=== PATIENT | female | born 1990 | race Caucasian/White ===

== ENCOUNTER → 2016-11-07 | Outpatient (REF) | payer OTHER | LOC: M LAB REF 13:13 | PROVIDERS: ATTEND Advanced Practice Midwife | DX: R30.0 Dysuria (principal) ==

== ENCOUNTER → 2016-11-27 | Outpatient (CLI) | payer OTHER, BC ==
--- NOTE | 2016-11-27 15:02 | REP ---
Clinical: Pelvic pain. Confirm IUD positioning. Technique: Transabdominal pelvic ultrasound followed by transvaginal examination for better evaluation of the endometrium and adnexa with color Doppler evaluation of the ovaries. Findings: Bladder is unremarkable and measures 9.0 x 7.2 x 7.8 cm. Retroverted uterus measures 6.6 x 3.8 x 4.2 cm. The endometrial complex measures 11.8 mm thickness. No discrete uterine or endometrial abnormalities are appreciated. IUD is identified in satisfactory position with tip extending towards the fundus. Bilateral ovaries are normal in appearance and vascularity without evidence for torsion. Right ovary measures 4.0 x 2.2 x 2.7 cm ; R I = 0.55. Left ovary measures 3.3 x 1.7 x 1.9 cm with 1.4 cm involuting follicle; R I = 0.55. 1 cm left paraovarian cyst. Mild free fluid likely physiologic. Impression: 1. Retroverted uterus with IUD in satisfactory position. 2. 1.4 cm involuting left ovarian cyst and 1 cm left paraovarian cyst. Consider follow-up examination in 4-6 weeks. Signed by Hu Odom MD 11/27/2016 02:53 P
== END ==
LOC: M RAD 13:45
PROVIDERS: ATTEND Advanced Practice Midwife
DX: Z30.431 Encounter for routine checking of intrauterine contraceptive device (principal); N83.202 Unspecified ovarian cyst, left side; Q51.818 Other congenital malformations of uterus

== ENCOUNTER 2017-09-15 20:51 | Emergency (ER) | payer OTHER, BC ==
[2017-09-15] MEDS: LORATADINE 10 MG TAB PO (21:45)
== END 2017-09-15 22:06 | disposition home or self-care (01) ==
LOC: M ED 20:51
DX: S40.861A Insect bite (nonvenomous) of right upper arm, initial encounter (principal); S40.862A Insect bite (nonvenomous) of left upper arm, initial encounter; S30.860A Insect bite (nonvenomous) of lower back and pelvis, initial encounter; S80.861A Insect bite (nonvenomous), right lower leg, initial encounter; S80.862A Insect bite (nonvenomous), left lower leg, initial encounter; T78.40XA Allergy, unspecified, initial encounter; W57.XXXA Bitten or stung by nonvenomous insect and other nonvenomous arthropods, initial encounter; Y92.099 Unspecified place in other non-institutional residence as the place of occurrence of the external cause; Y93.89 Activity, other specified; R21 Rash and other nonspecific skin eruption; L50.9 Urticaria, unspecified; L29.9 Pruritus, unspecified; Z79.899 Other long term (current) drug therapy; Z88.8 Allergy status to other drugs, medicaments and biological substances
CPT/HCPCS: 99282

== ENCOUNTER 2017-09-18 10:11 | Emergency (ER) | payer OTHER ==
[2017-09-20 14:14] LABS: HERPES ZOSTER, VARICELLA IgM <0.91 index (0.00-0.90)
[2017-09-20 14:14] LABS: HERPES ZOSTER, VARICELLA IgG <135 index (Immune >165)
== END 2017-09-18 11:31 | disposition home or self-care (01) ==
LOC: M ED 10:11
DX: B01.9 Varicella without complication (principal); Z87.891 Personal history of nicotine dependence; Z88.8 Allergy status to other drugs, medicaments and biological substances
CPT/HCPCS: 86787

== ENCOUNTER → 2017-11-26 | Outpatient (REF) | payer OTHER ==
[2017-11-26 15:25] LABS: CHLAMYDIA DNA AMPLIFICATION NEGATIVE (NEGATIVE); GC DNA AMPLIFICATION NEGATIVE (NEGATIVE)
== END ==
LOC: M LAB REF 13:18
DX: Z34.81 Encounter for supervision of other normal pregnancy, first trimester (principal); Z3A.08 8 weeks gestation of pregnancy
CPT/HCPCS: 87086

== ENCOUNTER → 2017-12-05 | Outpatient (CLI) | payer OTHER ==
[2017-12-05 10:46] LABS: BASO # 0.1 10^3/uL (0.0-0.2); BASO % 0.5 % (0.0-1.0); EOS # 0.1 10^3/uL (0.0-0.50); EOS % 0.9 % (0.0-3.0); HEMATOCRIT 37.4 % (36.0-47.0); HEMOGLOBIN 12.6 g/dl (12.0-15.5); IMMATURE GRANULOCYTE % 0.4 % (0-3.0); LYMPH # 2.4 10^3/uL (1.5-6.5); LYMPH % 24.7 % (24.0-44.0); MEAN CORPUSCULAR HEMOGLOBIN 29.8 pg (27.0-33.0); MEAN CORPUSCULAR HGB CONC 33.7 g/dl (32.0-36.5); MEAN CORPUSCULAR VOLUME 88.4 fl (80.0-96.0); MONO # 0.5 10^3/uL (0.0-0.8); MONO % 4.9 % (0.0-5.0); NEUTROPHILS # 6.7 10^3/uL (1.8-7.7); NEUTROPHILS % 68.6 % (36.0-66.0); PLATELET COUNT, AUTOMATED 252 10^3/uL (150-450); RED BLOOD COUNT 4.23 10^6/uL (4.00-5.40); RED CELL DISTRIBUTION WIDTH 12.4 % (11.5-14.5); WHITE BLOOD COUNT 9.8 10^3/uL (4.0-10.0)
[2017-12-05 11:15] LABS: ALT/SGPT 15 U/L (12-78); AST/SGOT 11 U/L (7-37); BILIRUBIN,TOTAL 0.3 MG/DL (0.2-1.0); CREATININE FOR GFR 0.57 MG/DL (0.55-1.30); GLOMERULAR FILTRATION RATE > 60.0 (>60); GLUCOSE CHALLENGE TEST 1 HOUR 114 MG/DL (LESS THAN 140); LDH LACTATE DEHYDROGENASE 140 U/L (84-246); URIC ACID 4.5 MG/DL (2.6-6.0)
[2017-12-05 11:30] LABS: ESTIMATED AVERAGE GLUCOSE 103 MG/DL (60-110); HEMOGLOBIN A1c 5.2 %
[2017-12-05 11:40] LABS: RUBELLA IgG QUALITATIVE IMMUNE (IMMUNE)
[2017-12-05 11:41] LABS: HEPATITIS B SURFACE ANTIGEN NEGATIVE (NEGATIVE)
[2017-12-05 12:09] LABS: HEPATITIS C VIRUS ABY INDEX < 0.0 INDEX (<0.8)
[2017-12-05 12:09] LABS: HIV 1&2 SCREEN CENTAUR NEGATIVE (NEGATIVE)
[2017-12-05 13:05] LABS: CHLAMYDIA DNA AMPLIFICATION NEGATIVE (NEGATIVE); GC DNA AMPLIFICATION NEGATIVE (NEGATIVE)
== END ==
LOC: M LAB 08:47
DX: Z34.81 Encounter for supervision of other normal pregnancy, first trimester (principal); Z3A.08 8 weeks gestation of pregnancy

== ENCOUNTER → 2018-01-22 | Outpatient (CLI) | payer OTHER | LOC: M LAB 08:50 | DX: Z34.80 Encounter for supervision of other normal pregnancy, unspecified trimester (principal); Z3A.00 Weeks of gestation of pregnancy not specified | CPT/HCPCS: 36415 ==

== ENCOUNTER → 2018-02-02 | Outpatient (CLI) | payer OTHER | LOC: M RAD 11:07 | DX: Z34.82 Encounter for supervision of other normal pregnancy, second trimester (principal); Z36.89 Encounter for other specified antenatal screening; Z3A.18 18 weeks gestation of pregnancy | CPT/HCPCS: 76811 ==

== ENCOUNTER → 2018-04-15 | Outpatient (CLI) | payer OTHER ==
[2018-04-15 09:52] LABS: HEMATOCRIT 35.4 % (36.0-47.0); HEMOGLOBIN 11.8 g/dl (12.0-15.5); MEAN CORPUSCULAR HEMOGLOBIN 30.3 pg (27.0-33.0); MEAN CORPUSCULAR HGB CONC 33.3 g/dl (32.0-36.5); MEAN CORPUSCULAR VOLUME 90.8 fl (80.0-96.0); PLATELET COUNT, AUTOMATED 210 10^3/uL (150-450); RED CELL DISTRIBUTION WIDTH 13.2 % (11.5-14.5)
[2018-04-15 10:09] LABS: GLUCOSE CHALLENGE TEST 1 HOUR 125 MG/DL (LESS THAN 140)
[2018-04-16 08:55] LABS: RH ONLY RHOGAM 1 1
== END ==
LOC: M LAB 08:09
DX: Z34.83 Encounter for supervision of other normal pregnancy, third trimester (principal); Z36.89 Encounter for other specified antenatal screening
CPT/HCPCS: 82950

== ENCOUNTER → 2018-06-12 | Outpatient (REF) | payer OTHER | LOC: M LAB REF 17:28 | DX: O99.213 Obesity complicating pregnancy, third trimester (principal) | CPT/HCPCS: 87186 ==

== ENCOUNTER 2018-07-08 12:56 | Inpatient (IN) | payer OTHER ==
[~2018-07-08] VITALS: Ht 177.8 cm; Wt 164.4 kg
[2018-07-08] VITALS (12 sets, daily range): BP systolic 108–143; BP diastolic 56–95
[~2018-07-08 12:56] MED LIST: PRENTAB16 PO; TRIA1CR80 TOP
[2018-07-08] MEDS ORDERED: OMEP40CA2 PO (13:28)
[2018-07-08] MEDS ORDERED: CLARITAN (13:28)
--- NOTE | 2018-07-08 14:56 | HPE ---
DATE OF ADMISSION: 07/08/2018 CHIEF COMPLAINT: Is labor. HISTORY OF PRESENT ILLNESS: Erika is a 27-year-old G1, P0-0-0-0 at 40 weeks 4 days estimated gestation by last menstrual period of 09/27/2017, confirmed by first-trimester ultrasound of 11/26/2017 with an estimated date of delivery of 07/04/2018. She is presenting for induction of labor. She denies any contractions or leakage of fluid, bleeding, or discharge. She has not had intercourse within the last week. She is feeling the baby move all the time. LABORATORIES: Blood type is O negative. RhoGAM was given at 28 weeks 6 days. Blood pressures have been normal in the office. Total weight gained is 40 pounds. The patient is group B streptococcus (GBS) positive, rubella immune, HIV negative, gonorrhea and chlamydia negative, hepatitis B surface antibody negative, [facility] ([facility]) nonreactive, and diabetes screen negative. Her last Pap was in May 2017 and was within normal limits. AFP4 was negative. The first obstetrical ultrasound showed posterior placenta. Ultrasound on 06/17/2018 had an amniotic fluid index (ADRIAN) of 15.6 cm. PAST OBSTETRICAL HISTORY: None. PAST MEDICAL HISTORY: None. MEDICATIONS: - vitamins - omeprazole 20 mg daily [id number] - Claritin daily PAST SURGICAL HISTORY: [place] teeth. PAST FAMILY HISTORY: Includes cancer, diabetes, hypertension, chronic kidney disease, and her father had factor V Leiden. ALLERGIES: OCPs WITH ESTROGEN. SOCIAL HISTORY: The patient is . Is a former smoker who quit in February of 2017. Denies any drug or alcohol use. EXAMINATION: Vital signs: Temperature 97.9, heart rate 93, blood pressure 137/95. Abdomen: Gravid. Sterile vaginal examination: 1 cm, 50% effaced, -2 station. monitor: Category one tracing with a baseline of 155 beats per minute. Good variability, prolonged accelerations. Tocometer: No contractions. Extremities: 2+ pitting edema up to the midshin. ASSESSMENT: This is in a single intrauterine (IUP) at 40 and 4 weeks presenting for induction of labor. Admit to labor and delivery with routine laboratories and orders. PLAN: 1. Induction of labor. Start with misoprostol sublingual. 2. Group B streptococcus positive. Will treat with antibiotics. 3. The patient would like epidural for coping with labor when she is father along. 4. Anticipate spontaneous vaginal delivery. My faculty preceptor for this patient encounter was physically present during the encounter and was fully available. All aspects of the patient interview, examination, medical decision-making process, and medical care plan development were reviewed and approved by the faculty preceptor. The faculty preceptor is aware and concurs with the plan as stated in the body of this note and will attest to such by his/her cosignature. MARGE
[2018-07-08] MEDS: miSOPROStol 50 MCG 1/2 TAB (S0191) SL SCH ×2 (15:29→19:58)
[2018-07-08 15:40] LABS: HEMATOCRIT 39.1 % (36.0-47.0); HEMOGLOBIN 12.8 g/dl (12.0-15.5); MEAN CORPUSCULAR HEMOGLOBIN 29.8 pg (27.0-33.0); MEAN CORPUSCULAR HGB CONC 32.7 g/dl (32.0-36.5); MEAN CORPUSCULAR VOLUME 91.1 fl (80.0-96.0); PLATELET COUNT, AUTOMATED 235 10^3/uL (150-450); RED BLOOD COUNT 4.29 10^6/uL (4.00-5.40); WHITE BLOOD COUNT 13.9 10^3/uL (4.0-10.0)
[2018-07-08] MEDS ORDERED: SLF 3 ML SYR IV PRN (16:15)
[2018-07-08] MEDS ORDERED: PRENATAL VITAMINS CHEWABLE TABLET PO ONE (21:00)
[2018-07-08] MEDS: LORATADINE 10 MG TAB PO SCH (21:31)
[2018-07-08] MEDS: OMEPRAZOLE 20 MG CAP PO SCH (21:32)
[2018-07-08] MEDS ORDERED: SLF 3 ML SYR IV SCH (22:00)
[2018-07-09] VITALS (54 sets, daily range): BP systolic 105–152; BP diastolic 55–91
[2018-07-09] MEDS: miSOPROStol 50 MCG 1/2 TAB (S0191) SL SCH (00:03)
[2018-07-09] MEDS ORDERED: OXYTOCIN DRIP 30 UNITS in APPROPRIATE DILUENT 1 EA IV SCH (07:45)
--- NOTE | 2018-07-09 07:48 | IPNPDOC ---
Obstetrical Progress Note Date of Service Jul 09, 2018 Subjective Feeling baby move, no contractions yet. Comfortable and coping well. No bleeding, leakage of fluids, or discharge Objective Vital Signs Date Time Temp Pulse Resp B/P (MAP) Pulse Ox O2 Delivery O2 Flow Rate FiO2 07/09/18 04:11 98.0 07/09/18 03:11 71 18 113/73 (86) Assessment Heart Rate (FHR): 150 Variability: Moderate Accelerations: Positive Decelerations: None Heart Rate Tracing: Category I Tocometer Contractions: No Sterile Vaginal Examination Dilation: 2cm Effacement (%): 70% Station: -1 Cervical Consistency: Soft Cervical Position: Posterior Postion/Presentation: Cephalic presentation Assessment and Plan Age: 27 : 1 Term: 0 Pre-term: 0 Abortions: 0 Livin Weeks & Days 40 weeks 5 days Status: Reassuring Anticipate: Vaginal Delivery (starting pitocin, GBS positive, giving antibiotic this morning, stopping misoprostol after 3 doses) GME ATTESTATION GME ATTESTATION My faculty preceptor for this patient encounter was physically present during the encounter and was fully available. All aspects of the patient interview, examination, medical decision making process, and medical care plan development were reviewed and approved by the faculty preceptor. The faculty preceptor is aware and concurs with the plan as stated in the body of this note and will attest to such by his/her cosignature. MARGARITO SANDOVAL DO Jul 09, 2018 07:48
[2018-07-09] MEDS: LR 1,000 ML IV SCH (08:55)
[2018-07-09] MEDS ORDERED: PENICILLIN G POTASSIUM IV 5 MU in D5W MINI-BAG PLUS 100 ML IV STA (09:00)
[2018-07-09] MEDS: PENICILLIN G POTASSIUM IV 2.5 MU in APPROPRIATE DILUENT 1 EA IV SCH ×3 (13:36→21:47)
[2018-07-09] MEDS ORDERED: PROMETHAZINE INJ 25 MG/ML VIAL (J2550) IV ONE (17:30)
[2018-07-09] MEDS ORDERED: BUTORPHANOL 2 MG/ML INJ (J0595) IV ONE (17:30)
[2018-07-09] MEDS ORDERED: FENTANYL 2MCG/ML ROPIVACAINE 0.2% IN 0.9% NACL 100ML IVBAG As Ordered ONE (19:14)
[2018-07-09] MEDS ORDERED: EPIDURAL COMMENT XX SCH (20:45)
[2018-07-09] MEDS ORDERED: FENTANYL/ROPIVACAINE/NACL BAG 100 ML EPIDURAL SCH (20:45)
[2018-07-09] MEDS ORDERED: EPIDURAL/PCA KEYS XX PRN (20:45)
[2018-07-09] MEDS ORDERED: ePHEDrine SULFATE 25 MG/5 ML(5MG/ML) SYRINGE IV PRN (20:45)
[2018-07-09] MEDS ORDERED: ONDANSETRON 4MG/2ML VIAL (J2405) IV PRN (20:45)
[2018-07-09] MEDS ORDERED: REFRIGERATOR IV KEYS XX PRN (20:45)
[2018-07-09] MEDS ORDERED: NALOXONE INJ 0.4 MG/1 ML VIAL (J2310) IV PRN (20:45)
[2018-07-09] MEDS ORDERED: LACTATED RINGER'S 1000 ML IV PRN (20:45)
[2018-07-09] MEDS ORDERED: diphenhydrAMINE INJ 50MG/ML VIAL (J1200) IV PRN (20:45)
[2018-07-09] MEDS: LORATADINE 10 MG TAB PO SCH (21:00)
[2018-07-09] MEDS: OMEPRAZOLE 20 MG CAP PO SCH (21:00)
[2018-07-10] VITALS (12 sets, daily range): BP systolic 112–151; BP diastolic 54–86
[2018-07-10] MEDS: LR 1,000 ML IV SCH (01:41)
[2018-07-10] MEDS: PENICILLIN G POTASSIUM IV 2.5 MU in APPROPRIATE DILUENT 1 EA IV SCH (02:10)
[2018-07-10] MEDS ORDERED: OXYTOCIN DRIP 30 UNITS in APPROPRIATE DILUENT 1 EA IV SCH (05:29)
[2018-07-10] MEDS ORDERED: METHYLERGONOVINE MALEATE 0.2 MG TAB PO PRN (05:30)
[2018-07-10] MEDS ORDERED: DIBUCAINE 1% OINTMENT 30GM TOP PRN (05:30)
[2018-07-10] MEDS ORDERED: MEASLES,MUMPS,RUBELLA VACCINE INJ (MMR-II) (90707) SC SCH (05:30)
[2018-07-10] MEDS ORDERED: RHOGAM 300 MCG (1500 IU) INJ (J2790) IM SCH (05:30)
[2018-07-10] MEDS ORDERED: DOCUSATE SODIUM 100 MG CAP PO PRN (05:30)
[2018-07-10] MEDS ORDERED: ACETAMINOPHEN 500 MG TAB PO PRN (05:30)
[2018-07-10] MEDS ORDERED: AMPICILLIN SOD/SULBACTAM SOD 3 GM in D5W MINI-BAG PLUS 100 ML IV ONE (05:45)
[2018-07-10 06:05] LABS: CORD GAS ABE A -3.3; CORD GAS HCO3 A 25.4 MEQ/L; CORD GAS O2 SAT A < 15.0 %; CORD GAS PCO2 A 60.4 mmHg; CORD GAS PH A 7.242 UNITS; CORD GAS PO2 A < 10.0 mmHg; CORD GAS TCO2 A 27.3 MEQ/L
[2018-07-10 06:07] LABS: CORD GAS ABE V -4.5; CORD GAS HCO3 V 21.4 MEQ/L; CORD GAS O2 SAT V 57.8 %; CORD GAS PCO2 V 42.4 mmHg; CORD GAS PH V 7.321 UNITS; CORD GAS PO2 V 25.9 mmHg; CORD GAS SBC V 19.8 MEQ/L; CORD GAS TCO2 V 22.7 MEQ/L
--- NOTE | 2018-07-10 06:17 | DN ---
DATE: 07/10/2018 Erika is a 27-year-old, 1, para 1-0-0-1 now, admitted to labor and delivery for induction of labor due to post-term . Misoprostol and IV Pitocin was used and labor did ensue. She did utilize an epidural for her labor coping. She progressed to full dilation at 0340. She pushed to a normal spontaneous vaginal delivery of a live female in occiput anterior (OA) position with restitution to left occiput transverse (LOT) position at 0445 with much coaching and encouragement. There was no nuchal cord. The shoulders delivered spontaneously and the corpus immediately followed. The female's mouth and nares were bulb suctioned and she was placed on the maternal abdomen crying and active. The cord was clamped times two and cut by the father of the baby under my direction. Cord gases were obtained. Results are still pending. Cord blood was obtained. There was a manual removal of placenta at 0500. There were trailing membranes that had to be removed manually times three sweeps. Uterine hemostasis achieved with IV Pitocin rapid infusion and uterine fundal massage. Estimated blood loss 350 mL. Perineum and vagina inspected and noted to be intact. [place] female weighed 7 pounds 10 ounces, 3470 grams, 8 and 9. Mom has named her daughter Donnell. She is going to breastfeed. At the close of delivery, lap counts, needle counts and instrument counts were correct and verified. I will be providing one dose of Unasyn for prophylactic antibiotic therapy.
[2018-07-10] MEDS: PRENATAL VITAMINS CHEWABLE TABLET PO SCH (09:00)
[2018-07-10] MEDS: IBUPROFEN 800 MG TAB PO SCH ×2 (15:15→20:44)
[2018-07-10] MEDS: OMEPRAZOLE 20 MG CAP PO SCH (20:45)
[2018-07-10] MEDS: LORATADINE 10 MG TAB PO SCH (20:45)
[2018-07-11] MEDS: IBUPROFEN 800 MG TAB PO SCH ×4 (03:55→21:00)
--- NOTE | 2018-07-11 05:23 | IPNPDOC ---
Text Note Date of Service The patient was seen on 07/11/18. NOTE Day 1 Status post spontaneous vaginal delivery Subjective Pain well controlled. Lochia decreasing. Voiding spontaneously. Passing flatus. Tolerating a regular diet. Ambulating without any assistance. Denies any subjective fever/chills/nausea/headache/visual changes/shortness of breath/chest pain. Breast feeding. Objective Vitals: Normotensive, normal heart rate, afebrile, adequate urine output. Heart: regular, rate, and rhythm. no murmurs/gallops/rubs Lungs: clear to auscultation bilaterally, no wheezes/crackles/rales/ronchi Abd: obese, soft, nontender, nondistended, uterine fundus is at the umbilicus and firm. Ext: no significant edema, nontender, negative Dominick's bilaterally. Assessment/Plan: day 1. Recovering well. Hemodynamically stable, afebrile, pain control adequate. -Routine care -Potential discharge to home today -Routine infectious, fever, pain, and bleeding precautions reviewed VS,Fishbone, I+O VS, Fishbone, I+O Vital Signs Date Time Temp Pulse Resp B/P (MAP) Pulse Ox O2 Delivery O2 Flow Rate FiO2 07/10/18 18:01 97.6 92 16 132/68 (89) 07/10/18 08:45 98 Room Air I&O- Last 24 Hours up to 6 AM 07/11/18 06:00 Intake Total 625 ml Output Total 250 ml Balance 375 ml GME ATTESTATION GME ATTESTATION My faculty preceptor for this patient encounter was physically present during th e encounter and was fully available. All aspects of the patient interview, examination, medical decision making process, and medical care plan development were reviewed and approved by the faculty preceptor. The faculty preceptor is aware and concurs with the plan as stated in the body of this note and will attest to such by his/her cosignature. MARGARITO SANDOVAL DO Jul 11, 2018 05:23
[2018-07-11 06:00] VITALS: BP 132/86
[2018-07-11] MEDS: PRENATAL VITAMINS CHEWABLE TABLET PO SCH (09:07)
[2018-07-11 18:06] VITALS: BP 137/88
[2018-07-11] MEDS: OMEPRAZOLE 20 MG CAP PO SCH (21:48)
[2018-07-11] MEDS: LORATADINE 10 MG TAB PO SCH (21:48)
[2018-07-12] MEDS: IBUPROFEN 800 MG TAB PO SCH ×2 (03:00→08:02)
[2018-07-12 06:00] VITALS: BP 139/86
[2018-07-12] MEDS: PRENATAL VITAMINS CHEWABLE TABLET PO SCH (08:02)
[2018-07-12] MEDS ORDERED: MAPA500T17 PO (09:10)
[2018-07-12] MEDS ORDERED: IBUP-1114 PO (09:11)
== END 2018-07-12 11:45 | disposition home or self-care (01) | DRG 807 ==
LOC: M LDI 12:56 → M OBS 07-10 08:38
PROVIDERS: ADMIT Specialist; ATTEND Specialist
PROC: 10E0XZZ Delivery of Products of Conception, External Approach (ICD-10-PCS; principal; 2018-07-08)
PROC: 3E033VJ Introduction of Other Hormone into Peripheral Vein, Percutaneous Approach (ICD-10-PCS; 2018-07-08)
PROC: 3E0DXGC Introduction of Other Therapeutic Substance into Mouth and Pharynx, External Approach (ICD-10-PCS; 2018-07-08)
DX: O48.0 Post-term pregnancy (principal); Z37.0 Single live birth; Z3A.40 40 weeks gestation of pregnancy; Z87.891 Personal history of nicotine dependence; O99.820 Streptococcus B carrier state complicating pregnancy

== ENCOUNTER → 2019-03-05 | Outpatient (REF) | payer OTHER ==
[~2019-03-05] MED LIST changes: +CLARITAN; +IBUP-1114 PO; +MAPA500T2 PO; +OMEP40CA2 PO
== END ==
LOC: M LAB REF 17:15
PROVIDERS: ATTEND Advanced Practice Midwife
DX: Z12.4 Encounter for screening for malignant neoplasm of cervix (principal)

== ENCOUNTER → 2019-05-09 | Outpatient (REF) | payer OTHER ==
[~2019-05-09] MED LIST changes: -OMEP40CA2 PO; +OMEP40CA97 PO
== END ==
LOC: M LAB REF 14:45
PROVIDERS: ATTEND Physician Assistant Medical
DX: J02.9 Acute pharyngitis, unspecified (principal)

== ENCOUNTER → 2019-07-13 | Outpatient (CLI) | payer OTHER ==
[2019-07-13 07:50] LABS: BASO # 0.1 10^3/uL (0.0-0.2); BASO % 0.7 % (0.0-1.0); EOS # 0.1 10^3/uL (0.0-0.5); EOS % 1.4 % (0.0-3.0); HEMATOCRIT 41.2 % (36.0-47.0); HEMOGLOBIN 13.2 g/dl (12.0-15.5); LYMPH # 3.1 10^3/uL (1.5-5.0); LYMPH % 38.8 % (24.0-44.0); MEAN CORPUSCULAR HEMOGLOBIN 29.9 pg (27.0-33.0); MEAN CORPUSCULAR VOLUME 93.4 fl (80.0-96.0); MONO # 0.6 10^3/uL (0.0-0.8); MONO % 7.2 % (0.0-5.0); NEUTROPHILS # 4.2 10^3/uL (1.5-8.5); NEUTROPHILS % 51.5 % (36.0-66.0); PLATELET COUNT, AUTOMATED 230 10^3/uL (150-450); RED BLOOD COUNT 4.41 10^6/uL (4.00-5.40); WHITE BLOOD COUNT 8.1 10^3/uL (4.0-10.0)
[2019-07-13 08:18] LABS: ALBUMIN 3.4 GM/DL (3.2-5.2); ALT/SGPT 27 U/L (12-78); BILIRUBIN,TOTAL 0.1 MG/DL (0.2-1.0); BLOOD UREA NITROGEN 12 MG/DL (7-18); CALCIUM LEVEL 8.7 MG/DL (8.5-10.1); CARBON DIOXIDE LEVEL 25 MEQ/L (21-32); CHLORIDE LEVEL 109 MEQ/L (98-107); CHOLESTEROL LEVEL 178 MG/DL (<200); CHOLESTEROL RISK RATIO 4.045 (<5); CREATININE FOR GFR 0.83 MG/DL (0.55-1.30); GLOMERULAR FILTRATION RATE > 60.0 (>60); GLUCOSE, FASTING 89 MG/DL (70-100); HDL CHOLESTEROL 44 MG/DL (>40); HEMOGLOBIN A1c 5.4 %; LDL CHOLESTEROL 123 MG/DL (<100); NON-HDL-C 134 MG/DL; POTASSIUM SERUM 4.4 MEQ/L (3.5-5.1); SODIUM LEVEL 140 MEQ/L (136-145); TOTAL PROTEIN 6.4 GM/DL (6.4-8.2); TRIGLYCERIDES LEVEL 53 MG/DL (<150)
[2019-07-13 10:23] LABS: TOTAL 25(OH) VITAMIN D 24.4 NG/ML (30.0-100.0)
[2019-07-13 10:24] LABS: VITAMIN B12 LEVEL 243 PG/ML (247-911)
== END ==
LOC: M LAB 07:14
PROVIDERS: ATTEND Physician Assistant
DX: E66.01 Morbid (severe) obesity due to excess calories (principal); R40.0 Somnolence

== ENCOUNTER → 2019-09-14 | Outpatient (CLI) | payer OTHER ==
[2019-09-14 12:09] LABS: ALBUMIN 3.8 GM/DL (3.2-5.2); ALT/SGPT 24 U/L (12-78); BILIRUBIN,TOTAL 0.3 MG/DL (0.2-1.0); BLOOD UREA NITROGEN 13 MG/DL (7-18); CALCIUM LEVEL 9.1 MG/DL (8.5-10.1); CARBON DIOXIDE LEVEL 28 MEQ/L (21-32); CHLORIDE LEVEL 105 MEQ/L (98-107); CREATININE FOR GFR 0.75 MG/DL (0.55-1.30); GLOMERULAR FILTRATION RATE > 60.0 (>60); GLUCOSE, FASTING 82 MG/DL (70-100); POTASSIUM SERUM 4.1 MEQ/L (3.5-5.1); SODIUM LEVEL 138 MEQ/L (136-145); TOTAL PROTEIN 6.9 GM/DL (6.4-8.2)
[2019-09-14 12:15] LABS: TOTAL 25(OH) VITAMIN D 22.3 NG/ML (30.0-100.0); VITAMIN B12 LEVEL 1062 PG/ML
[2019-09-14 12:16] LABS: FOLATE > 24.0 NG/ML
== END ==
LOC: M LAB 11:06
PROVIDERS: ATTEND Physician Assistant
DX: E55.9 Vitamin D deficiency, unspecified (principal)

== ENCOUNTER → 2020-01-13 | Outpatient (CLI) | payer OTHER ==
--- NOTE | 2020-01-26 14:52 | SLEEPHOME ---
DATE OF STUDY: 01/13/2020 ORDERED BY: MAITE [facility] home sleep testing was performed due to concern for the obstructive sleep apnea syndrome. For testing, a nocturnal T3 respiratory monitoring device was used. Continuous record was made of pulse, oxygen saturation, airflow, chest and abdominal strain, and body position. 9 hours and 59 minutes of data were reviewed. There were 6 hours and 58 minutes marked as time in bed. During the interval marked time in bed, there were 168 respiratory events identified of 10 seconds in duration or greater for a respiratory event index of 24.1. The events were obstructive. Baseline pulse rate 71. Pulse rate ranged 58-96. Baseline saturation 95%. Saturations fell as low as 81%, and testing was performed in both the supine and nonsupine positions. IMPRESSION: Abnormal home sleep testing with repetitive respiratory events and oxygen desaturations to 81% with a respiratory event index of 24.1 is consistent with the obstructive sleep apnea syndrome. RECOMMENDATION: The patient should be encouraged to undergo formal sleep evaluation.
== END ==
LOC: M SLEEP HO 14:50
PROVIDERS: ATTEND Nurse Practitioner Adult Health
DX: G47.30 Sleep apnea, unspecified (principal)

== ENCOUNTER → 2020-03-23 | Outpatient (REF) | payer OTHER ==
[2020-03-23 19:21] LABS: HEMOGLOBIN 12.6 g/dl (12.0-15.5); MEAN CORPUSCULAR HEMOGLOBIN 29.6 pg (27.0-33.0); MEAN CORPUSCULAR HGB CONC 31.5 g/dl (32.0-36.5); MEAN CORPUSCULAR VOLUME 93.9 fl (80.0-96.0); PLATELET COUNT, AUTOMATED 265 10^3/uL (150-450); RED BLOOD COUNT 4.26 10^6/uL (4.00-5.40); WHITE BLOOD COUNT 7.6 10^3/uL (4.0-10.0)
[2020-03-23 19:35] LABS: ALBUMIN 3.6 GM/DL (3.2-5.2); ALT/SGPT 22 U/L (12-78); BILIRUBIN,TOTAL 0.3 MG/DL (0.2-1.0); BLOOD UREA NITROGEN 12 MG/DL (7-18); CALCIUM LEVEL 8.9 MG/DL (8.5-10.1); CARBON DIOXIDE LEVEL 27 MEQ/L (21-32); CHLORIDE LEVEL 109 MEQ/L (98-107); CREATININE FOR GFR 0.79 MG/DL (0.55-1.30); GLOMERULAR FILTRATION RATE > 60.0 (>60); GLUCOSE, FASTING 128 MG/DL (70-100); POTASSIUM SERUM 3.9 MEQ/L (3.5-5.1); SODIUM LEVEL 140 MEQ/L (136-145); TOTAL PROTEIN 6.8 GM/DL (6.4-8.2)
== END ==
LOC: M SFHCCLAY 17:35
PROVIDERS: ATTEND Family Medicine
DX: Z01.818 Encounter for other preprocedural examination (principal); E66.01 Morbid (severe) obesity due to excess calories; G47.33 Obstructive sleep apnea (adult) (pediatric)

== ENCOUNTER → 2020-06-21 | Outpatient (CLI) | payer OTHER ==
[2020-06-21 15:30] LABS: BASO % 0.6 % (0.0-1.0); EOS # 0.1 10^3/uL (0.0-0.5); EOS % 1.4 % (0.0-3.0); HEMATOCRIT 40.3 % (36.0-47.0); HEMATOCRIT 40.6 % (36.0-47.0); HEMOGLOBIN 12.8 g/dl (12.0-15.5); LYMPH # 2.3 10^3/uL (1.5-5.0); LYMPH % 46.1 % (24.0-44.0); MEAN CORPUSCULAR HEMOGLOBIN 28.6 pg (27.0-33.0); MEAN CORPUSCULAR HGB CONC 31.8 g/dl (32.0-36.5); MONO # 0.4 10^3/uL (0.0-0.8); MONO % 7.3 % (0.0-5.0); NEUTROPHILS # 2.2 10^3/uL (1.5-8.5); NEUTROPHILS % 44.6 % (36.0-66.0); PLATELET COUNT, AUTOMATED 184 10^3/uL (150-450); RED BLOOD COUNT 4.48 10^6/uL (4.00-5.40); WHITE BLOOD COUNT 4.9 10^3/uL (4.0-10.0)
[2020-06-21 16:02] LABS: FERRITIN 71 NG/ML (8-252); IRON (FE) 54 UG/DL (50-170); PERCENT SATURATION 22.2 % (13.2-45.0); PHOSPHORUS LEVEL 3.1 MG/DL (2.5-4.9); TOTAL IRON BINDING CAPACITY 243 UG/DL (250-450)
[2020-06-21 16:06] LABS: TOTAL 25(OH) VITAMIN D 45.6 NG/ML (30.0-100.0); VITAMIN B12 LEVEL > 2000 PG/ML (247-911)
== END ==
LOC: M LAB 14:38
PROVIDERS: ATTEND Surgery
DX: K91.2 Postsurgical malabsorption, not elsewhere classified (principal); E55.9 Vitamin D deficiency, unspecified; Z98.84 Bariatric surgery status; Z86.39 Personal history of other endocrine, nutritional and metabolic disease

== ENCOUNTER 2020-12-26 01:02 | Emergency (ER) | payer OTHER ==
[~2020-12-26] VITALS: Ht 180.3 cm; Wt 102.1 kg
[2020-12-26] MEDS ORDERED: MORPHINE 4 MG/ML 1ML VIAL/SYRINGE (J2270) IV PRN (01:50)
[2020-12-26] MEDS ORDERED: ONDANSETRON 4MG/2ML VIAL IV ONE (01:50)
[2020-12-26] MEDS ORDERED: NS 1,000 ML IV ONE ×2 (02:10→04:45)
[2020-12-26 02:19] LABS: BASO # 0.1 10^3/uL (0.0-0.2); BASO % 0.4 % (0.0-1.0); EOS % 0.4 % (0.0-3.0); HEMOGLOBIN 13.3 g/dl (12.0-15.5); LYMPH # 1.8 10^3/uL (1.5-5.0); LYMPH % 15.9 % (24.0-44.0); MEAN CORPUSCULAR HEMOGLOBIN 30.9 pg (27.0-33.0); MEAN CORPUSCULAR HGB CONC 32.4 g/dl (32.0-36.5); MEAN CORPUSCULAR VOLUME 95.3 fl (80.0-96.0); MONO # 0.5 10^3/uL (0.0-0.8); MONO % 4.1 % (2.0-8.0); NEUTROPHILS % 78.9 % (36.0-66.0); PLATELET COUNT, AUTOMATED 264 10^3/uL (150-450); WHITE BLOOD COUNT 11.3 10^3/uL (4.0-10.0)
[2020-12-26 02:50] LABS: ALBUMIN 3.7 GM/DL (3.2-5.2); ALT/SGPT 19 U/L (12-78); BILIRUBIN,DIRECT 0.2 MG/DL (0.0-0.2); BILIRUBIN,TOTAL 0.4 MG/DL (0.2-1.0); LIPASE 67 U/L (73-393); TOTAL PROTEIN 6.4 GM/DL (6.4-8.2)
[2020-12-26] MEDS ORDERED: GASTROGRAFIN SOLUTION 30ML PO ONE (03:00)
[2020-12-26] MEDS ORDERED: ISOVUE-370 76% 100ML VIAL As Ordered ONE (03:23)
[2020-12-26 03:40] LABS: RSV AMPLIFICATION NEGATIVE (NEGATIVE)
--- NOTE | 2020-12-26 04:11 | REPVR ---
PROCEDURE INFORMATION: Exam: XR Complete Acute Abdomen Series Including Chest Exam date and time: 12/26/2020 2:36 AM Age: 30 years old Clinical indication: Abdominal pain; Acute; Additional info: Abd pain TECHNIQUE: Imaging protocol: XR complete acute abdomen series, including 2 or more views of the abdomen and a single view chest. COMPARISON: No relevant prior studies available. FINDINGS: Lungs: Normal. No consolidation. Pleural spaces: Normal. No pleural effusions. No pneumothorax. Heart/Mediastinum: Normal. No cardiomegaly. Gastrointestinal tract: Nonspecific gas-filled loops of bowel in the left hemiabdomen. Gas is seen to the rectum. Intraperitoneal space: Normal. No free air. Organs: IUD in the pelvis. Bones/joints: Normal. No acute fracture. Soft tissues: Normal. IMPRESSION: 1. No acute infiltrate. 2. Nonspecific gas-filled loops of bowel in the left hemiabdomen. Gas is seen to the rectum. Electronically signed by: Sandra Johnston On 12/26/2020 04:11:04 AM
--- NOTE | 2020-12-26 04:19 | REPVR ---
PROCEDURE INFORMATION: Exam: CT Abdomen And Pelvis With Contrast Exam date and time: 12/26/2020 2:39 AM Age: 30 years old Clinical indication: Abdominal pain; Epigastric; Prior surgery; Surgery date: 6+ months; Surgery type: G bypass; Additional info: R/O perforated svetlana-en y anastamosis TECHNIQUE: Imaging protocol: Computed tomography of the abdomen and pelvis with contrast. Radiation optimization: All CT scans at this facility use at least one of these dose optimization techniques: automated exposure control; mA and/or kV adjustment per patient size (includes targeted exams where dose is matched to clinical indication); or iterative reconstruction. Contrast material: ISO; Contrast volume: 100 ml; Contrast route: INTRAVENOUS (IV); COMPARISON: CR Abdomen,Flat Upright,PA CHEST 12/26/2020 1:38 AM FINDINGS: Limitations: Examination is limited by motion artifact. Liver: Normal. No mass. Gallbladder and bile ducts: Normal. No calcified stones. No ductal dilation. Pancreas: Normal. No ductal dilation. Spleen: Normal. No splenomegaly. Adrenal glands: Normal. No mass. Kidneys and ureters: Normal. No hydronephrosis. Stomach and bowel: Small sliding-type gastric hiatal hernia. Status post gastric bypass surgery. There is irregularity of the anterior wall of the at the cardia of the stomach. Suspicious for site of viscus perforation. No abnormal bowel dilatation. No abnormal bowel wall thickening. Negative for colonic diverticulitis. Appendix: Appendix is normal. Intraperitoneal space: Small free fluid in the pelvis. Moderate pneumoperitoneum predominantly in the upper abdomen. Suspect tiny oral contrast in the subphrenic region just left of midline. (Series 201, image 14). Vasculature: Unremarkable. No abdominal aortic aneurysm. Lymph nodes: Unremarkable. No enlarged lymph nodes. Urinary bladder: Unremarkable as visualized. Reproductive: IUD in the uterus. Tampon in the vagina. Bones/joints: Mild degenerative spine. No acute fracture. Soft tissues: Small umbilical hernia containing infiltrated fat. Possible postop changes. Mild cellulitis cannot be excluded. IMPRESSION: 1. Moderate pneumoperitoneum predominantly in the upper abdomen. Consistent with bowel perforation. 2. Suspicious for perforation of the cardia of the stomach. 3. Status post gastric bypass surgery. 4. Suspect tiny oral contrast in the subphrenic region just left of midline. 5. Small free fluid in the pelvis. 6. Additional findings as described. Electronically signed by: Sandra Johnston On 12/26/2020 04:18:39 AM
[2020-12-26] MEDS ORDERED: PIPERACILLIN/TAZOBACTAM SOD 3.375 GM in D5W MINI-BAG PLUS 50 ML IV ONE (04:30)
[2020-12-26] MEDS ORDERED: fentaNYL 100 MCG/2 ML INJECTION (J3010) IV ONE (04:35)
[2020-12-26 05:19] LABS: BLOOD UREA NITROGEN 14 MG/DL (7-18); CARBON DIOXIDE LEVEL 26 MEQ/L (21-32); CHLORIDE LEVEL 111 MEQ/L (98-107); CREATININE FOR GFR 0.77 MG/DL (0.55-1.30); GLOMERULAR FILTRATION RATE > 60.0 (>60); GLUCOSE, FASTING 109 MG/DL (70-100); POTASSIUM SERUM 3.5 MEQ/L (3.5-5.1); SODIUM LEVEL 143 MEQ/L (136-145)
[2020-12-26 06:06] VITALS: BP 99/54
== END 2020-12-26 06:17 | disposition short-term general hospital (02) ==
LOC: M ED 01:02
DX: K63.1 Perforation of intestine (nontraumatic) (principal); Z98.84 Bariatric surgery status; E66.9 Obesity, unspecified; F33.9 Major depressive disorder, recurrent, unspecified; F41.9 Anxiety disorder, unspecified; Z79.899 Other long term (current) drug therapy
CPT/HCPCS: 74021; 74177; 80047; 80048; 80076; 81001; 83690; 84702; 85025; 87631; 96361; 96374; 96375; 99284; J2405; J2543; J3010; Q9963; Q9967

== ENCOUNTER → 2021-02-24 | Outpatient (REF) ==
[~2021-02-24] MED LIST changes: +OMEP40CA4 PO; -OMEP40CA97 PO
== END ==
LOC: M LABSMTC 10:01
PROVIDERS: ATTEND Family Medicine
DX: Z11.52 Encounter for screening for COVID-19 (principal)

== ENCOUNTER → 2021-06-06 | Outpatient (REF) | LOC: M LABSMTC 11:12 | PROVIDERS: ATTEND Family Medicine | DX: Z20.822 Contact with and (suspected) exposure to COVID-19 (principal) ==

== ENCOUNTER → 2021-07-18 | Outpatient (REF) | LOC: M LABSMTC 10:49 | PROVIDERS: ATTEND Family Medicine | DX: Z11.52 Encounter for screening for COVID-19 (principal) ==

== ENCOUNTER → 2021-07-19 | Outpatient (REF) | payer BC | LOC: M SFHCCAPE 11:51 | PROVIDERS: ATTEND Physician Assistant | DX: J22 Unspecified acute lower respiratory infection (principal) ==

== ENCOUNTER → 2021-08-01 | Outpatient (REF) | LOC: M LABSMTC 11:25 | PROVIDERS: ATTEND Pediatrics | DX: Z11.52 Encounter for screening for COVID-19 (principal) ==

== ENCOUNTER → 2021-08-09 | Outpatient (REF) | payer BC | LOC: M PLALAB 16:15 | PROVIDERS: ATTEND Advanced Practice Midwife | DX: Z01.419 Encounter for gynecological examination (general) (routine) without abnormal findings (principal); Z12.4 Encounter for screening for malignant neoplasm of cervix ==

== ENCOUNTER → 2021-10-25 | Outpatient (CLI) | payer BC ==
[2021-10-25 17:52] LABS: BASO # 0.1 10^3/uL (0.0-0.2); BASO % 0.5 % (0.0-1.0); EOS # 0.1 10^3/uL (0.0-0.5); EOS % 0.4 % (0.0-3.0); HEMOGLOBIN 12.4 g/dl (12.0-15.5); LYMPH # 2.9 10^3/uL (1.5-5.0); LYMPH % 26.4 % (24.0-44.0); MEAN CORPUSCULAR HEMOGLOBIN 31.5 pg (27.0-33.0); MEAN CORPUSCULAR HGB CONC 32.6 g/dl (32.0-36.5); MEAN CORPUSCULAR VOLUME 96.4 fl (80.0-96.0); MONO # 0.6 10^3/uL (0.0-0.8); MONO % 5.7 % (2.0-8.0); NEUTROPHILS # 7.4 10^3/uL (1.5-8.5); NEUTROPHILS % 66.5 % (36.0-66.0); PLATELET COUNT, AUTOMATED 249 10^3/uL (150-450); RED BLOOD COUNT 3.94 10^6/uL (4.00-5.40); WHITE BLOOD COUNT 11.1 10^3/uL (4.0-10.0)
[2021-10-25 18:07] LABS: APPEARANCE, URINE CLOUDY (CLEAR); BACTERIA, URINE AUTO NEGATIVE (NEGATIVE); BILIRUBIN, URINE AUTO NEGATIVE (NEGATIVE); BLOOD, URINE BLOOD NEGATIVE (NEGATIVE); COLOR, URINE AMBER (YELLOW); GLUCOSE, URINE (UA) AUTO NEGATIVE (NEGATIVE); KETONE, URINE AUTO TRACE mg/dL (NEGATIVE); LEUKOCYTE ESTERASE, URINE AUTO 2+ (NEGATIVE); MUCUS, URINE SMALL (NEGATIVE); NITRITE, URINE AUTO NEGATIVE (NEGATIVE); PROTEIN, URINE AUTO 1+ mg/dL (NEGATIVE); RBC, URINE AUTO 5 /HPF (0-3); SQUAMOUS EPITHELIAL CELL UR AU 29 /HPF (0-6); WBC, URINE AUTO 16 /HPF (0-3)
[2021-10-25 18:10] LABS: HCG, SERUM QUALITATIVE POSITIVE (NEGATIVE)
[2021-10-25 18:22] LABS: ALT/SGPT 48 U/L (12-78); BILIRUBIN,TOTAL 0.2 MG/DL (0.2-1.0); BLOOD UREA NITROGEN 12 MG/DL (7-18); CALCIUM LEVEL 9.3 MG/DL (8.5-10.1); CARBON DIOXIDE LEVEL 23 MEQ/L (21-32); CHLORIDE LEVEL 111 MEQ/L (98-107); CREATININE FOR GFR 0.51 MG/DL (0.55-1.30); FREE T4 0.91 NG/DL (0.76-1.46); GLOMERULAR FILTRATION RATE > 60.0 (>60); GLUCOSE, FASTING 67 MG/DL (70-100); SODIUM LEVEL 141 MEQ/L (136-145); TOTAL PROTEIN 6.7 GM/DL (6.4-8.2)
[2021-10-25 18:27] LABS: VITAMIN B12 LEVEL > 2000 PG/ML
[2021-10-25 18:28] LABS: FOLATE > 24.0 NG/ML
[2021-10-25 19:55] LABS: HCG, SERUM QUANTITATIVE 44734 MIU/ML
== END ==
LOC: M LAB 17:03
PROVIDERS: ATTEND Physician Assistant
DX: R42 Dizziness and giddiness (principal)

== ENCOUNTER → 2021-11-05 | Outpatient (CLI) | payer BC ==
[2021-11-05 17:29] LABS: HEMATOCRIT 33.6 % (36.0-47.0); MEAN CORPUSCULAR HEMOGLOBIN 31.3 pg (27.0-33.0); MEAN CORPUSCULAR HGB CONC 32.7 g/dl (32.0-36.5); MEAN CORPUSCULAR VOLUME 95.5 fl (80.0-96.0); PLATELET COUNT, AUTOMATED 212 10^3/uL (150-450); RED BLOOD COUNT 3.52 10^6/uL (4.00-5.40); WHITE BLOOD COUNT 10.7 10^3/uL (4.0-10.0)
[2021-11-05 18:48] LABS: HEPATITIS C VIRUS ABY INDEX 0.1 INDEX (<0.8); HIV 1&2 SCREEN CENTAUR NEGATIVE (NEGATIVE)
[2021-11-05 18:53] LABS: GC DNA AMPLIFICATION NEGATIVE (NEGATIVE)
== END ==
LOC: M PLALAB 14:00
PROVIDERS: ATTEND Advanced Practice Midwife
DX: Z34.91 Encounter for supervision of normal pregnancy, unspecified, first trimester (principal)

== ENCOUNTER → 2022-01-10 | Outpatient (CLI) | payer BC | LOC: M PLALAB 08:22 | PROVIDERS: ATTEND Obstetrics & Gynecology | DX: Z34.82 Encounter for supervision of other normal pregnancy, second trimester (principal) ==

== ENCOUNTER → 2022-01-10 | Outpatient (CLI) | payer BC | LOC: M WHC 06:48 | PROVIDERS: ATTEND Obstetrics & Gynecology | DX: Z36.89 Encounter for other specified antenatal screening (principal); Z3A.15 15 weeks gestation of pregnancy ==

== ENCOUNTER → 2022-03-05 | Outpatient (REF) | LOC: M LABSMTC 10:01 | PROVIDERS: ATTEND Family Medicine | DX: Z11.52 Encounter for screening for COVID-19 (principal) ==

== ENCOUNTER → 2022-03-07 | Outpatient (CLI) | payer BC ==
[2022-03-07 11:57] LABS: HEMATOCRIT 36.1 % (36.0-47.0); HEMOGLOBIN 11.8 g/dl (12.0-15.5); MEAN CORPUSCULAR HEMOGLOBIN 31.7 pg (27.0-33.0); MEAN CORPUSCULAR HGB CONC 32.7 g/dl (32.0-36.5); PLATELET COUNT, AUTOMATED 203 10^3/uL (150-450); RED BLOOD COUNT 3.72 10^6/uL (4.00-5.40); WHITE BLOOD COUNT 10.9 10^3/uL (4.0-10.0)
[2022-03-07 23:25] LABS: GC DNA AMPLIFICATION NEGATIVE (NEGATIVE)
== END ==
LOC: M PLALAB 07:58
PROVIDERS: ATTEND Obstetrics & Gynecology
DX: Z36.9 Encounter for antenatal screening, unspecified (principal); Z3A.23 23 weeks gestation of pregnancy
CPT/HCPCS: 36415; 82950; 85027; 86850; 86900; 86901; 87810; 87850; J2790

== ENCOUNTER → 2022-03-22 | Outpatient (CLI) | payer BC | LOC: M WHC 11:16 | PROVIDERS: ATTEND Obstetrics & Gynecology | DX: Z34.82 Encounter for supervision of other normal pregnancy, second trimester (principal) ==

== ENCOUNTER → 2022-04-09 | Outpatient (CLI) | payer BC | LOC: M WHC 13:46 | PROVIDERS: ATTEND Advanced Practice Midwife | DX: O99.843 Bariatric surgery status complicating pregnancy, third trimester (principal) ==

== ENCOUNTER → 2022-04-18 | Outpatient (CLI) | payer BC ==
[2022-04-18 14:20] LABS: CALCIUM LEVEL 8.9 MG/DL (8.5-10.1)
== END ==
LOC: M PLALAB 10:26
PROVIDERS: ATTEND Advanced Practice Midwife
DX: O99.843 Bariatric surgery status complicating pregnancy, third trimester (principal); Z3A.00 Weeks of gestation of pregnancy not specified

== ENCOUNTER → 2022-05-07 | Outpatient (REF) | payer BC | LOC: M PLALAB 14:21 | PROVIDERS: ATTEND Obstetrics & Gynecology | DX: Z34.93 Encounter for supervision of normal pregnancy, unspecified, third trimester (principal) ==

== ENCOUNTER → 2022-12-10 | Outpatient (REF) | payer BC, OTHER ==
[~2022-12-10] MED LIST changes: +ACET-683 PO
== END ==
LOC: M SFHCWAGY 13:17
PROVIDERS: ATTEND Nurse Practitioner Family
DX: Z12.4 Encounter for screening for malignant neoplasm of cervix (principal)
CPT/HCPCS: 87624; G0123

== ENCOUNTER → 2023-09-05 | Outpatient (CLI) | payer BC ==
[2023-09-05 17:17] LABS: BASO # 0.1 10^3/uL (0.0-0.2); BASO % 0.5 % (0.0-1.0); EOS % 0.2 % (0.0-3.0); HEMATOCRIT 38.4 % (36.0-47.0); HEMOGLOBIN 12.6 g/dl (12.0-15.5); LYMPH # 1.9 10^3/uL (1.5-5.0); LYMPH % 19.6 % (24.0-44.0); MEAN CORPUSCULAR HEMOGLOBIN 30.7 pg (27.0-33.0); MEAN CORPUSCULAR HGB CONC 32.8 g/dl (32.0-36.5); MEAN CORPUSCULAR VOLUME 93.7 fl (80.0-96.0); MONO # 0.4 10^3/uL (0.0-0.8); MONO % 4.3 % (2.0-8.0); NEUTROPHILS # 7.4 10^3/uL (1.5-8.5); PLATELET COUNT, AUTOMATED 250 10^3/uL (150-450); WHITE BLOOD COUNT 9.9 10^3/uL (4.0-10.0)
[2023-09-05 17:53] LABS: ALBUMIN 3.6 G/DL (3.2-5.2); ALKALINE PHOSPHATASE 60 U/L (46-116); ALT/SGPT 27 U/L (7.0-40); AST/SGOT 20 U/L (<34); BILIRUBIN,TOTAL 0.3 MG/DL (0.3-1.2); BLOOD UREA NITROGEN 10 MG/DL (9-23); CALCIUM LEVEL 8.9 MG/DL (8.5-10.1); CARBON DIOXIDE LEVEL 25 MMOL/L (20-31); CHLORIDE LEVEL 107 MMOL/L (98-107); CREATININE FOR GFR 0.58 MG/DL (0.55-1.30); FERRITIN 30.3 NG/ML (7.3-270.7); GLOMERULAR FILTRATION RATE > 60.0 (>60); GLUCOSE, FASTING 111 MG/DL (60-100); IRON (FE) 81 UG/DL (50-170); PERCENT SATURATION 24.8 % (13.2-45.0); POTASSIUM SERUM 3.8 MMOL/L (3.5-5.1); SODIUM LEVEL 138 MMOL/L (136-145); TOTAL IRON BINDING CAPACITY 327 UG/DL (250-425); TOTAL PROTEIN 6.5 G/DL (5.7-8.2)
[2023-09-05 17:54] LABS: TOTAL 25(OH) VITAMIN D 35.2 NG/ML (20.0-100.0)
[2023-09-05 17:55] LABS: FOLATE > 24.00 NG/ML (>5.4); VITAMIN B12 LEVEL 1797 PG/ML (211-911)
== END ==
LOC: M PLALAB 13:58
PROVIDERS: ATTEND Physician Assistant Medical
DX: Z98.84 Bariatric surgery status (principal); F32.1 Major depressive disorder, single episode, moderate

== ENCOUNTER → 2023-09-05 | Outpatient (CLI) | payer BC ==
[2023-09-05 17:17] LABS: HEMATOCRIT 38.2 % (36.0-47.0); HEMOGLOBIN 12.5 g/dl (12.0-15.5); MEAN CORPUSCULAR HEMOGLOBIN 30.6 pg (27.0-33.0); MEAN CORPUSCULAR HGB CONC 32.7 g/dl (32.0-36.5); MEAN CORPUSCULAR VOLUME 93.6 fl (80.0-96.0); PLATELET COUNT, AUTOMATED 258 10^3/uL (150-450); RED BLOOD COUNT 4.08 10^6/uL (4.00-5.40); WHITE BLOOD COUNT 9.9 10^3/uL (4.0-10.0)
[2023-09-05 18:00] LABS: GC DNA AMPLIFICATION NEGATIVE (NEGATIVE)
[2023-09-05 18:18] LABS: HIV 1&2 SCREEN NEGATIVE (NEGATIVE)
[2023-09-05 18:27] LABS: HEPATITIS C VIRUS ABY INDEX 0.02 INDEX (<0.8)
== END ==
LOC: M PLALAB 13:54
PROVIDERS: ATTEND Specialist
DX: Z34.81 Encounter for supervision of other normal pregnancy, first trimester (principal)

== ENCOUNTER → 2023-09-18 | Outpatient (REF) | payer BC | LOC: M PLALAB 09:49 | PROVIDERS: ATTEND Obstetrics & Gynecology | DX: Z34.82 Encounter for supervision of other normal pregnancy, second trimester (principal) ==

== ENCOUNTER → 2023-11-20 | Outpatient (CLI) | payer BC | LOC: M WHC 12:25 | PROVIDERS: ATTEND Obstetrics & Gynecology | DX: O32.1XX0 Maternal care for breech presentation, not applicable or unspecified (principal); Z3A.23 23 weeks gestation of pregnancy ==

== ENCOUNTER → 2023-12-17 | Outpatient (CLI) | payer BC ==
[2023-12-17 18:17] LABS: HEMATOCRIT 34.7 % (36.0-47.0); HEMOGLOBIN 11.3 g/dl (12.0-15.5); MEAN CORPUSCULAR HEMOGLOBIN 31.3 pg (27.0-33.0); MEAN CORPUSCULAR HGB CONC 32.6 g/dl (32.0-36.5); MEAN CORPUSCULAR VOLUME 96.1 fl (80.0-96.0); PLATELET COUNT, AUTOMATED 222 10^3/uL (150-450); RED BLOOD COUNT 3.61 10^6/uL (4.00-5.40); WHITE BLOOD COUNT 12.1 10^3/uL (4.0-10.0)
[2023-12-17 18:52] LABS: ALBUMIN 2.8 G/DL (3.2-5.2); ALKALINE PHOSPHATASE 78 U/L (46-116); ALT/SGPT 16 U/L (7.0-40); AST/SGOT 18 U/L (<34); BILIRUBIN,TOTAL 0.2 MG/DL (0.3-1.2); BLOOD UREA NITROGEN 13 MG/DL (9-23); CALCIUM LEVEL 8.5 MG/DL (8.5-10.1); CARBON DIOXIDE LEVEL 24 MMOL/L (20-31); CHLORIDE LEVEL 108 MMOL/L (98-107); CREATININE FOR GFR 0.74 MG/DL (0.55-1.30); GLOMERULAR FILTRATION RATE > 60.0 (>60); GLUCOSE, FASTING 87 MG/DL (60-100); POTASSIUM SERUM 4.3 MMOL/L (3.5-5.1); SODIUM LEVEL 139 MMOL/L (136-145); TOTAL PROTEIN 5.7 G/DL (5.7-8.2)
== END ==
LOC: M PLALAB 14:32
PROVIDERS: ATTEND Advanced Practice Midwife
DX: O99.842 Bariatric surgery status complicating pregnancy, second trimester (principal); Z3A.00 Weeks of gestation of pregnancy not specified
CPT/HCPCS: 36415; 80053; 85027; 86850; 86900; 86901; J2790

== ENCOUNTER → 2024-02-09 | Outpatient (CLI) | payer BC | LOC: M WHC 10:47 | PROVIDERS: ATTEND Advanced Practice Midwife | DX: O99.843 Bariatric surgery status complicating pregnancy, third trimester (principal); Z3A.34 34 weeks gestation of pregnancy ==

== ENCOUNTER → 2024-02-17 | Outpatient (REF) | payer BC | LOC: M PLALAB 08:43 | PROVIDERS: ATTEND Obstetrics & Gynecology | DX: Z36.89 Encounter for other specified antenatal screening (principal); Z3A.36 36 weeks gestation of pregnancy ==

== ENCOUNTER 2024-03-13 00:55 | Inpatient (IN) | payer BC ==
[2024-03-13] VITALS (48 sets, daily range): BP systolic 100–143; BP diastolic 55–89; O2SAT 98–100
[~2024-03-13] VITALS: Ht 180.3 cm; Wt 118.9 kg
[2024-03-13] MEDS ORDERED: METHYLERGONOVINE MALEATE 0.2MG/ML 1ML VIAL IM PRN (01:05)
[2024-03-13] MEDS ORDERED: CARBOPROST TROMETHAMINE 250 MCG/ML AMP IM PRN (01:05)
[2024-03-13] MEDS ORDERED: OXYTOCIN INJ 10UNITS/ML 1ML VIAL IM PRN (01:05)
[2024-03-13] MEDS ORDERED: OXYTOCIN DRIP 30 UNITS in IV 1 EA IV PRN (01:05)
[2024-03-13] MEDS ORDERED: TRANEXAMIC ACID INJection 1,000 MG in NS 100 ML IV PRN (01:05)
[2024-03-13] MEDS ORDERED: LIDOCAINE 1% MDV 20ML VIAL INFIL PRN (01:05)
[2024-03-13] MEDS ORDERED: PROZ10CA7 PO (01:34)
[2024-03-13] MEDS ORDERED: GNP250TA9 PO (01:34)
[2024-03-13] MEDS ORDERED: OMEP10CASR PO (01:34)
[2024-03-13] MEDS ORDERED: NOXI1TAB PO (01:34)
[2024-03-13] MEDS: LACTATED RINGER'S 1000 ML IV STA (01:58)
[2024-03-13] MEDS ORDERED: HOME MED LIST COMPLETE! XX SCH (02:20)
[2024-03-13 02:46] LABS: HEMATOCRIT 34.6 % (36.0-47.0); HEMOGLOBIN 11.5 g/dl (12.0-15.5); MEAN CORPUSCULAR HEMOGLOBIN 30.8 pg (27.0-33.0); MEAN CORPUSCULAR HGB CONC 33.2 g/dl (32.0-36.5); MEAN CORPUSCULAR VOLUME 92.8 fl (80.0-96.0); PLATELET COUNT, AUTOMATED 196 10^3/uL (150-450); RED BLOOD COUNT 3.73 10^6/uL (4.00-5.40); WHITE BLOOD COUNT 13.5 10^3/uL (4.0-10.0)
[2024-03-13] MEDS ORDERED: ePHEDrine SULFATE 25 MG/5 ML(5MG/ML) SYRINGE IVP PRN (03:15)
[2024-03-13] MEDS ORDERED: ONDANSETRON 4MG 2ML VIAL IV PRN (03:15)
[2024-03-13] MEDS ORDERED: diphenhydrAMINE 50MG/ML VIAL IV PRN (03:15)
[2024-03-13] MEDS ORDERED: LR 500 ML IV PRN (03:15)
[2024-03-13] MEDS ORDERED: NALOXONE INJ 0.4MG/1ML VIAL IV PRN (03:15)
[2024-03-13] MEDS ORDERED: EPIDURAL/PCA KEYS XX PRN (03:15)
[2024-03-13] MEDS ORDERED: FENTANYL 2MCG/ML ROPIVACAINE 0.2% IN 0.9% NACL 100ML IVBAG As Ordered ONE (03:16)
[2024-03-13] MEDS: LR 1,000 ML IV SCH (03:30)
[2024-03-13 03:55] LABS: HEPATITIS C VIRUS ABY INDEX < 0.02 INDEX (<0.8)
[2024-03-13] MEDS: FENTANYL/ROPIVACAINE/NACL BAG 100 ML EPIDURAL SCH (03:59)
[2024-03-13] MEDS: OXYTOCIN DRIP 30 UNITS in IV 1 EA IV SCH (11:09)
[2024-03-13] MEDS ORDERED: METHYLERGONOVINE MALEATE 0.2 MG TAB PO PRN (13:15)
[2024-03-13] MEDS ORDERED: ACETAMINOPHEN TAB 650MG DOSE (2X325MG) PO PRN (13:15)
[2024-03-13] MEDS ORDERED: IBUPROFEN 800 MG TAB PO PRN (13:15)
[2024-03-13] MEDS ORDERED: IBUPROFEN 600MG TAB PO PRN (13:15)
[2024-03-13] MEDS ORDERED: DOCUSATE SODIUM 100MG CAPSULE PO PRN (13:15)
[2024-03-13] MEDS: ACETAMINOPHEN 500 MG TAB PO PRN (15:36)
[2024-03-13] MEDS: DIBUCAINE 1% OINTMENT 30GM TOP PRN (20:58)
[2024-03-14 05:43] VITALS: BP 127/80; O2SAT 98
[2024-03-14] MEDS: PRENATAL VITAMINS CHEWABLE TABLET PO SCH (08:26)
[2024-03-14] MEDS: RHO(D) IMMUNE GLOBULIN/MALTOSE 500MCG(2500IU)/2.2ML VIAL (WINRHO) IM SCH (11:21)
[2024-03-14] MEDS ORDERED: IBUP80TA PO (17:08)
[2024-03-15] MEDS ORDERED: MEASLES,MUMPS,RUBELLA VACCINE INJ (MMR-II) SC.IMMUN ONE (09:00)
== END 2024-03-14 17:54 | disposition home or self-care (01) | DRG 560 ==
LOC: M LDO 00:55 → M LDI 01:11 → M OBS 14:55
PROVIDERS: ADMIT Advanced Practice Midwife; ATTEND Specialist
PROC: 10E0XZZ Delivery of Products of Conception, External Approach (ICD-10-PCS; principal; 2024-03-13)
PROC: 10907ZC Drainage of Amniotic Fluid, Therapeutic from Products of Conception, Via Natural or Artificial Opening (ICD-10-PCS; 2024-03-13)
PROC: 30233S1 Transfusion of Nonautologous Globulin into Peripheral Vein, Percutaneous Approach (ICD-10-PCS; 2024-03-14)
DX: O62.0 Primary inadequate contractions (principal); O99.844 Bariatric surgery status complicating childbirth; O69.81X0 Labor and delivery complicated by cord around neck, without compression, not applicable or unspecified; Z37.0 Single live birth; Z3A.39 39 weeks gestation of pregnancy

== ENCOUNTER → 2024-08-11 | Outpatient (REF) | payer BC ==
[~2024-08-11] MED LIST changes: +GNP250TA9 PO; +IBUP80TA PO; +NOXI1TAB PO; +OMEP10CASR PO; +PROZ10CA7 PO
[2024-08-11 17:03] LABS: BASO # 0.1 10^3/uL (0.0-0.2); BASO % 1.6 % (0.0-1.0); EOS # 0.1 10^3/uL (0.0-0.5); EOS % 1.2 % (0.0-3.0); HEMATOCRIT 38.2 % (36.0-47.0); HEMOGLOBIN 12.6 g/dl (12.0-15.5); LYMPH % 39.6 % (24.0-44.0); MONO # 0.3 10^3/uL (0.0-0.8); MONO % 6.3 % (2.0-8.0); NEUTROPHILS # 2.6 10^3/uL (1.5-8.5); NEUTROPHILS % 50.9 % (36.0-66.0); PLATELET COUNT, AUTOMATED 286 10^3/uL (150-450); WHITE BLOOD COUNT 5.1 10^3/uL (4.0-10.0)
[2024-08-11 17:29] LABS: IRON (FE) 111 UG/DL (50-170); PERCENT SATURATION 35.4 % (13.2-45.0); TOTAL IRON BINDING CAPACITY 314 UG/DL (250-425)
[2024-08-11 17:30] LABS: ALBUMIN 3.9 G/DL (3.2-5.2); ALKALINE PHOSPHATASE 68 U/L (35-104); ALT/SGPT 24 U/L (7.0-40); AST/SGOT 19 U/L (<34); BILIRUBIN,TOTAL 0.5 MG/DL (0.3-1.2); BLOOD UREA NITROGEN 15 MG/DL (9-23); CALCIUM LEVEL 8.6 MG/DL (8.5-10.1); CARBON DIOXIDE LEVEL 23 MMOL/L (20-31); CHLORIDE LEVEL 108 MMOL/L (98-107); CREATININE FOR GFR 0.77 MG/DL (0.55-1.30); FOLATE > 24.0 NG/ML (>5.4); GLOMERULAR FILTRATION RATE > 60.0 (>60); GLUCOSE, FASTING 85 MG/DL (60-100); POTASSIUM SERUM 4.2 MMOL/L (3.5-5.1); SODIUM LEVEL 143 MMOL/L (136-145); TOTAL PROTEIN 6.6 G/DL (5.7-8.2)
[2024-08-11 17:31] LABS: FERRITIN 21.9 NG/ML (7.3-270.7); FREE T4 1.22 NG/DL (0.89-1.76); THYROID STIMULATING HORMONE 0.631 uIU/ML (0.55-4.78); TOTAL 25(OH) VITAMIN D 40.1 NG/ML (20.0-100.0)
[2024-08-11 17:32] LABS: VITAMIN B12 LEVEL 1394 PG/ML (211-911)
== END ==
LOC: M SFHCCAPE 07:55
PROVIDERS: ATTEND Physician Assistant Medical
DX: F41.1 Generalized anxiety disorder (principal); Z98.84 Bariatric surgery status; F32.A Depression, unspecified; E55.9 Vitamin D deficiency, unspecified

== ENCOUNTER → 2024-10-27 | Outpatient (REF) | LOC: M EMP 09:11 | PROVIDERS: ATTEND Family Medicine | DX: Z01.89 Encounter for other specified special examinations (principal) ==

== ENCOUNTER → 2025-01-31 | Outpatient (REF) | payer BC | LOC: M SFHCDERM 17:33 | PROVIDERS: ATTEND Physician Assistant | DX: D22.9 Melanocytic nevi, unspecified (principal) ==